=== PATIENT | male | born 1950 | race Caucasian/White ===

== ENCOUNTER 2016-07-11 00:49 | Emergency (ER) | payer OTHER, MEDICARE ==
[~2016-07-11] VITALS: Ht 175.3 cm; Wt 74.8 kg
--- NOTE | 2016-07-11 00:44 | ED CARDIAC/CP/PALPITATIONS ---
History of Present Illness General Chief Complaint: Chest Pain Stated Complaint: "CHEST PAIN X1HOUR AGO" Past History Travel History Traveled to [place] past 21 day No Progress Plan of Care: Orders Procedure Date/time Status EKG 07/11 41 Active Comments: WRONG PT NUMBER Departure Departure Disposition: HOME OR SELF CARE Condition: Stable Departure Forms: Customer Survey General Discharge Information
[~2016-07-11 00:49] MED LIST: ASPIRIN CHILDRE81 MG PO; CELEXA20 MG PO; CRESTOR 10MG10 MG PO; MULTIVITAMIN1 TAB PO; PLAVIX 75MG TAB75 MG PO; TOPROL XL25 MG PO; XARELTO20 MG PO
--- NOTE | 2016-07-11 00:55 | ED CARDIAC/CP/PALPITATIONS ---
History of Present Illness General Chief Complaint: Chest Pain Stated Complaint: " CHEST PAIN X1HOUR" Source: patient, family, old records Exam Limitations: no limitations Vital Signs & Intake/Output Vital Signs & Intake/Output Vital Signs Date Time Temp Pulse Resp B/P Pulse O2 O2 Flow FiO2 Ox Delivery Rate 07/11 0117 98 Room Air 07/11 0101 96.8 72 21 154/94 98 Room Air Allergies Coded Allergies: No Known Allergies (07/11/16) Reconcile Medications Aspirin (Children's Aspirin) 81 MG TAB.CHEW 1 TAB PO EOD HEART HEALTH ( Reported) Citalopram Hydrobromide (Celexa) 20 MG TABLET 1 TAB PO DAILY DEPRESSION ( Reported) Metoprolol Succinate (Toprol XL) [address] TAB PO DAILY BP (Reported) Multivitamin (Multiple Vitamins) 1 EACH TABLET 1 TAB PO DAILY SUPPLEMENT ( Reported) Rivaroxaban (Xarelto) 20 MG TABLET 1 TAB PO DAILY BLOOD THINNER (Reported) with food Rosuvastatin Calcium (Crestor) 10 MG TABLET 1 TAB PO DAILY CHOLESTEROL ( Reported) Triage Nurses Notes Reviewed? yes HPI: Patient presents with an hour-long history of a pinching sensation that starts in both shoulders and radiates to the center of his chest. There are no aggravating or mitigating factors. The symptoms were sudden onset have been continuous since. Patient denies any radiation outside of what is noted above. There is no shortness of breath. There is no dyspnea on exertion. There is no orthopnea. There is no nausea or vomiting. There is no diaphoresis. He rates it as 5 out of 10. This pain is not similar to the pain that he had prior to his 2 stents being placed. Past History Travel History Traveled to [place] past 21 day No Medical History Any Pertinent Medical History? see below for history Cardiovascular: CAD, hypertension, hyperlipidemia History of MRSA: No History of VRE: No History of CDIFF: No Influenza Vaccine: 02/11/14 Surgical History Surgical History: ptca WITH STENT Psychosocial History Who do you live with Patient/Self Services at Home None What is your primary language Bengali Tobacco Use: Never used ETOH Use: occasional use Illicit Drug Use: denies illicit drug use Family History Family History, If Any: FATHER FH: heart disease MOTHER FH: heart disease SISTER FH: atrial fibrillation FH: heart disease BROTHER FH: heart disease Relation not specified for: FH: diabetes mellitus FH: hypertension Hx Contributory? No Review of Systems Review of Systems Constitutional: Reports: no symptoms. EENTM: Reports: no symptoms. Respiratory: Reports: no symptoms. Cardiovascular: Reports: see HPI, chest pain. GI: Reports: no symptoms. Genitourinary: Reports: no symptoms. Musculoskeletal: Reports: no symptoms. Skin: Reports: no symptoms. Neurological/Psychological: Reports: no symptoms. Hematologic/Endocrine: Reports: no symptoms. Immunologic/Allergic: Reports: no symptoms. All Other Systems: Reviewed and Negative Physical Exam Physical Exam General Appearance: well developed/nourished, alert, awake, mild distress Head: atraumatic, normal appearance Eyes: Bilateral: PERRL, EOMI. Ears, Nose, Throat: normal pharynx, normal ENT inspection Neck: normal inspection, supple, full range of motion Respiratory: normal breath sounds, chest non-tender, no respiratory distress, lungs clear Cardiovascular: regular rate/rhythm, normal peripheral pulses Gastrointestinal: normal bowel sounds, soft, non-tender, no organomegaly Back: normal inspection, normal range of motion Extremities: normal inspection, normal capillary refill, normal range of motion, no edema Neurologic/Psych: no motor/sensory deficits, awake, alert, oriented x 3, normal gait, normal mood/affect Skin: intact, normal color, warm/dry Lymphatic: no anterior cervical diaz Core Measures ACS in differential dx? Yes ASA ordered for poss ACS? No-ACS ruled out Severe Sepsis Present: No Septic Shock Present: No Progress Differential Diagnosis: AMI, atrial fibrillation, costochondritis, musculoskeletal pain, myocarditis, pericarditis, pneumonia, pneumothorax Plan of Care: Orders Procedure Date/time Status TROPONIN LEVEL 07/11 447 Complete EKG 07/11 447 Active Telemetry/Crisis Intervention Counselor 07/11 54 Active TROPONIN LEVEL 07/11 54 Complete COMPREHENSIVE METABOLIC PANEL 07/11 54 Complete CBC WITHOUT DIFFERENTIAL 07/11 54 Complete EKG 07/11 54 Active Laboratory Tests 07/11/16 0511: Troponin I < 0.01 07/11/16 0135: Anion Gap 9, Estimated GFR > 60, BUN/Creatinine Ratio 19.2, Glucose 137 H, Calcium 9.7, Total Bilirubin 0.5, AST 29, ALT 35, Alkaline Phosphatase 71, Troponin I < 0.01, Total Protein 6.6, Albumin 4.1, Globulin 2.5, Albumin/ Globulin Ratio 1.6 07/11/16 0102: CBC w Diff NO MAN DIFF REQ, RBC 4.48 L, MCV 90.9, MCH 32.2 H, RDW 13.5, MPV 7.1 L, Gran % 67.9, Lymphocytes % 20.6, Monocytes % 8.7, Eosinophils % 2.2, Basophils % 0.6, Absolute Granulocytes 5.3, Absolute Lymphocytes 1.6, Absolute Monocytes 0.7 H, Absolute Eosinophils 0.2, Absolute Basophils 0, PUBS MCHC 35.4 Diagnostic Imaging: Viewed by Me: Radiology Read. Discussed w/RAD: Radiology Read. CXR Impression: PATIENT: AKIN CROWLEY PRESENT AGE: 66 PATIENT ACCOUNT NO: [id number] : 49 LOCATION: [facility] ORDERING PHYSICIAN: CECILIA LOBATO MD SERVICE DATE: 07/11/16 EXAM TYPE: RAD - XRY-PORTABLE CHEST XRAY EXAMINATION: XR PORTABLE CHEST CLINICAL INFORMATION: Chest pain. COMPARISON: Chest x-ray April 03, 2014 TECHNIQUE: Portable AP view of the chest was obtained. FINDINGS: Low lung volumes. Accounting for soft tissues, no definite focal consolidation. No pleural effusion or pneumothorax. Cardiac silhouette size is likely within normal limits accounting for low lung volumes and AP technique. There are no acute osseous findings. IMPRESSION: Low lung volumes with no acute pulmonary process. DICTATED BY: ARIANA LINDQUIST MD DATE/TIME DICTATED:07/11/16131 CLOTHING BUSHELER:SANTHOSH DATE/TIME TRANSCRIBED:07/11/16131 CONFIDENTIAL, DO NOT COPY WITHOUT APPROPRIATE AUTHORIZATION. <Electronically signed in Other Vendor System> SIGNED BY: ARIANA LINDQUIST MD 07/11/16136 Initial ED EKG: NSR, nonspecific ST T wave chg Repeat EKG: unchanged Rhythm Strip: normal sinus rhythm Departure Departure Disposition: HOME OR SELF CARE Condition: Stable Clinical Impression Primary Impression: Chest pain Qualifiers: Chest pain type: other chest pain Qualified Code: R07.89 - Other chest pain Referrals: HUONG SOLIS,MAU (PCP/Family) Horace MONTES MD Additional Instructions: RETURN IF SYMPTOMS WORSEN OR FOR ANY CONCERNS Departure Forms: Customer Survey General Discharge Information Critical Care Note Critical Care Note Critical Care Time: non-applicable
[2016-07-11 01:11] LABS: ABSOLUTE BASOPHIL COUNT 0 /CUMM (0.0-0.2); ABSOLUTE EOSINOPHIL COUNT 0.2 /CUMM (0.0-0.7); ABSOLUTE GRANULOCYTE CT 5.3 /CUMM (1.4-6.5); ABSOLUTE LYMPH COUNT 1.6 /CUMM (1.2-3.4); ABSOLUTE MONOCYTE COUNT 0.7 /CUMM (0.10-0.60); BASOPHIL % 0.6 % (0.0-2.0); EOSINOPHIL % 2.2 % (0-5); GRANULOCYTE % 67.9 % (42.2-75.2); HEMATOCRIT 40.7 % (42-52); MEAN CORPUSCULAR HGB 32.2 PG (27.0-31.0); MEAN CORPUSCULAR HGB CONC 35.4 G/DL (33.0-37.0); MEAN CORPUSCULAR VOLUME 90.9 FL (80.0-94.0); MEAN PLATELET VOLUME 7.1 FL (7.4-10.4); PLATELET COUNT 196 /CUMM (130-400); RBC DISTRIBUTION WIDTH 13.5 % (11.5-14.5); RED BLOOD CELL CT 4.48 /CUMM (4.70-6.10); WHITE BLOOD CELL COUNT 7.8 /CUMM (4.8-10.8)
--- NOTE | 2016-07-11 01:37 | RADIOLOGY REPORT ---
EXAMINATION: XR PORTABLE CHEST CLINICAL INFORMATION: Chest pain. COMPARISON: Chest x-ray April 03, 2014 TECHNIQUE: Portable AP view of the chest was obtained. FINDINGS: Low lung volumes. Accounting for soft tissues, no definite focal consolidation. No pleural effusion or pneumothorax. Cardiac silhouette size is likely within normal limits accounting for low lung volumes and AP technique. There are no acute osseous findings. IMPRESSION: Low lung volumes with no acute pulmonary process.
[2016-07-11] MEDS ORDERED: CYCLOBENZAPRINE10 M1 PO (06:20)
[2016-07-11 06:28] VITALS: BP 142/88
== END 2016-07-11 06:30 ==
LOC: ERH 00:49
PROVIDERS: Emergency Medicine
DX: R07.9 Chest pain, unspecified (principal)
CPT/HCPCS: 93005; 93010; 96374; J1885; J3490